=== PATIENT | female | born 1985 | race Caucasian/White ===

== ENCOUNTER 2017-05-23 06:11 | Inpatient (IN) | payer OTHER ==
[~2017-05-23] VITALS: Ht 162.6 cm; Wt 102.3 kg
[2017-05-23 06:37] VITALS: Ht 162.6 cm; Wt 102.3 kg
[2017-05-23] MEDS ORDERED: PREN-19 PO (06:43)
[2017-05-23] MEDS ORDERED: IRON18TA PO (06:43)
[2017-05-23 06:51] VITALS: BP 113/71; PULSE 78; RESP 18
[2017-05-23] MEDS ORDERED: CARBOPROST 250 MCG INJ IM PRN (07:00)
[2017-05-23] MEDS ORDERED: MISOPROSTOL 200 MCG TAB PR PRN ×2 (07:00→08:00)
[2017-05-23] MEDS ORDERED: OXYTOCIN 30 UNITS/LR 500 ML BAG IV ONE (07:00)
[2017-05-23] MEDS ORDERED: OXYTOCIN 30 UNITS/LR 500 ML IV SCH (07:00)
[2017-05-23] MEDS ORDERED: METHYLERGONOVINE 0.2 MG INJ IM PRN (07:00)
[2017-05-23] MEDS ORDERED: OXYTOCIN 30 UNITS/LR 500 ML IV PRN (07:00)
[2017-05-23] MEDS: LACTATED RINGER'S 1,000 ML IV SCH ×5 (07:00→23:59)
[2017-05-23] MEDS ORDERED: PHENYLephrine (100 MCG/ML) 5ML SYG ONE ×3 (07:49→08:33)
[2017-05-23] MEDS ORDERED: ONDANSETRON 4 MG INJ ONE (07:49)
[2017-05-23] MEDS ORDERED: morphine SULFATE/PF (10 MG/10 ML) INJ ONE (07:50)
[2017-05-23] MEDS ORDERED: OXYTOCIN 10 UNIT INJ ONE (07:50)
[2017-05-23] MEDS: CEFAZOLIN 2 GM/50 ML (PMX) 50 ML IV SCH ×3 (07:57→17:05)
--- NOTE | 2017-05-23 07:58 | HP ---
Date/Time of Note Date/Time of Note DATE: 05/23/17 TIME: 07:57 OB - History Hx of Present Free Text/Dictation HISTORY OF PRESENT ILLNESS: The patient is with IUP at 39 weeks with history of previous delivery, who desires to have repeat delivery. I discussed with the patient the risks, benefits, indications, and alternatives of procedure including but not limited to risks of infection, bleeding, damage to other organs, bowel, bladder, hernia formation, scar formation, possibility of blood transfusion, possible need for emergency hysterectomy. She was allowed to ask questions. All her questions were answered. Informed consent has been obtained. Care: Good Care Ultrasounds: Normal mid trimester US Obstetrical Complications: None Medical Complications: None Past Family/Social History * Past Medical, Surgical, Family and Obstetric Histories reviewed from chart. OB Admission Exam Vital Signs Vital Signs Vital Signs Date Time Temp Pulse Resp B/P Pulse Ox O2 Delivery O2 Flow Rate FiO2 05/23/17 06:51 98.7 78 18 113/71 Room Air Physical Exam HEENT: WNL Heart: Rhythm Normal Lungs: Clear, Equal Abdomen: WNL Extremities: Normal Reflexes: Normal Last 72 hours Lab Results CBC & BMP 05/23/17 06:45 OB Assessment/Plan Other Assessment: The patient is with IUP at 39 weeks with history of previous delivery, who desires to have repeat delivery. Plan: Section ANAT BONILLA MD May 23, 2017 07:58
[2017-05-23] MEDS ORDERED: LANOLIN 7 GM TUBE TOP PRN (08:00)
[2017-05-23] MEDS ORDERED: NA PHOSPHATE/BIPHOS 133 ML ENEMA PR PRN (08:00)
[2017-05-23] MEDS ORDERED: OXYCODONE/ACETAMINOPHEN (5/325) TAB PO PRN (08:00)
[2017-05-23] MEDS ORDERED: FENTAnyl 50 MCG/ML VIAL ONE (08:20)
[2017-05-23] MEDS: SENNA/DOCUSATE NA (8.6MG/50MG) TAB PO SCH ×2 (09:00→21:20)
--- NOTE | 2017-05-23 09:14 | OPR ---
Operative Report Planned Procedure Procedure date May 23, 2017 Procedure(s) repeat delivery Performed by see signature line Assisting provider: COLEEN COOPER MD Pre-procedure diagnosis Term IUP Desires repeat delivery Anesthesia Type: spinal Procedure Description Under satisfactory [spinal] anesthesia, the patient was prepped and draped and placed in a supine position, tilted to the left. Pfannenstiel incision was made , carried through the subcutaneous tissue. Bleeders brought under control with electrocautery. Fascia incised to the length of the incision. Rectus muscles from the fascia, divided midline. Peritoneum exposed, entered through a transverse incision. Exploration of abdomen revealed gravid uterus. Bladder flap was developed. Transverse incision was made in the lower segment of the uterus. Amniotic sac ruptured. clear amniotic fluid noted. Nasal oropharyngeal suction was performed. The baby was handed to the team for immediate attention. The placenta was delivered manually intact. Uterine cavity was cleaned with wet sponge and drainage established. Uterus closed in 2 layers using #1 Monocryl in continuous fashion. Peritoneal cavity irrigated with warm saline. Sponge, needle and instrument count reported to be correct. Abdominal peritoneum closed with 2-0 Monocryl continuously. Rectus muscle approximated with 2-0 Monocryl. Fascia closed with #1 Vicryl, and skin closed with alona. Estimated blood loss 700 mL. Post-Procedure Findings: Live Baby Vertex presentation Estimated blood loss: other (600) Specimen(s): no Grafts/Implants: no Complication(s): no Pt Condition post procedure: stable Disposition: PACU Physician Certification I, the undersigned physician, hereby certify that I have discussed the procedure described in this consent form with this patient (or the patient's legal pharmaceutical specialty representative), including: * The risk and benefits of the procedure; * Any adverse reactions that may reasonably be expected to occur; * Any alternative efficacious methods of treatment which may be medically viable ; * The potential problems that may occur during recuperation; * Potential for blood transfusion and associated risks/benefits; and * Any research or economic interest I may have regarding this treatment. I further certify that the patient/legally responsible person was encouraged to ask question and that all questions were answered. ANAT BONILLA MD May 23, 2017 09:14
[2017-05-23] MEDS ORDERED: morphine 2 MG INJ IV PRN (09:30)
[2017-05-23] MEDS ORDERED: DIPHENHYDRAMINE 50 MG INJ IV PRN (09:30)
[2017-05-23] MEDS ORDERED: NALOXONE (0.4 MG/ML) INJ IV PRN (09:30)
[2017-05-23] MEDS ORDERED: ONDANSETRON 4 MG INJ IV PRN (09:30)
[2017-05-23] MEDS: KETOROLAC 30 MG INJ IV PRN ×2 (10:56→18:47)
[2017-05-23 12:00] VITALS: BP 95/58; PULSE 74; RESP 18
[2017-05-23 16:00] VITALS: BP 88/56; PULSE 79; RESP 20
[2017-05-23 20:00] VITALS: BP 101/54; PULSE 70; RESP 18
[2017-05-24] VITALS: BP 91/58; PULSE 74; RESP 18
[2017-05-24] MEDS: KETOROLAC 30 MG INJ IV PRN ×2 (01:45→07:45)
[2017-05-24 04:00] VITALS: BP 94/58; PULSE 72; RESP 18
[2017-05-24] MEDS: OXYCODONE/ACETAMINOPHEN (5/325) TAB PO PRN ×2 (07:49→16:56)
[2017-05-24] MEDS: LACTATED RINGER'S 1,000 ML IV SCH ×2 (07:59→15:59)
[2017-05-24 08:00] VITALS: BP 102/63; PULSE 81; RESP 19
[2017-05-24] MEDS: SENNA/DOCUSATE NA (8.6MG/50MG) TAB PO SCH ×2 (09:00→22:16)
[2017-05-24] MEDS: IBUPROFEN 600 MG TAB PO SCH ×2 (12:17→18:33)
--- NOTE | 2017-05-24 15:46 | PN ---
Date/Time of Note Date/Time of Note DATE: 05/24/17 TIME: 15:44 OB Subjective Subjective Subjective Status post repeat section Postoperative day #1 Patient denies any complaint. Pain well-controlled. Breast-feeding. Denies any nausea and vomiting. Tolerates a regular diet. Breast-feeding. Has a slightly trouble with breast-feeding. OB Objective Objective Objective General appearance: Alert and oriented 4. Patient does not appear to be in any acute distress. Abdomen: Soft, appropriate tenderness in the incision. Incision, clean dry and intact. Extremities: No calf tenderness, no click no edema Breast: No evidence of engorgement, fissure or mastitis Fundus, firm Hematology - 72 Hrs Test 05/23/17 06:45 05/24/17 09:56 White Blood Count 14.310^3/ul (4.8-10.8) H 12.710^3/ul (4.8-10.8) H Red Blood Count 4.5210^6/ul (4.20-5.40) 4.0010^6/ul (4.20-5.40) L Hemoglobin 13.6g/dl (12.0-16.0) 12.1g/dl (12.0-16.0) Hematocrit 40.5% (37.0-47.0) 36.6% (37.0-47.0) L Mean Corpuscular Volume 89.6fl (82.0-101.0) 91.5fl (82.0-101.0) Mean Corpuscular Hemoglobin 30.1pg (29.0-33.0) 30.3pg (29.0-33.0) Mean Corpuscular Hemoglobin Concent 33.6g/dl (32.0-37.0) 33.1g/dl (32.0-37.0) Red Cell Distribution Width 13.2% (11.5-14.5) 13.3% (11.5-14.5) Platelet Count 54713^3/UL (140-415) 18123^3/UL (140-415) Mean Platelet Volume 11.9fl (7.4-10.4) H 11.7fl (7.4-10.4) H Neutrophils % 78.2% (39.0-77.0) H 81.0% (39.0-77.0) H Lymphocytes % 13.5% (15.0-51.0) L 11.3% (15.0-51.0) L Monocytes % 6.1% (0.0-11.0) 6.1% (0.0-11.0) Eosinophils % 1.0% (0.0-7.0) 0.6% (0.0-7.0) Basophils % 0.3% (0.0-2.0) 0.2% (0.0-2.0) Nucleated Red Blood Cells % 0.0/100WBC (0.0-0.0) 0.0/100WBC (0.0-0.0) Neutrophils # 11.210^3/ul (1.6-7.5) H 10.310^3/ul (1.6-7.5) H Lymphocytes # 1.910^3/ul (0.8-2.9) 1.410^3/ul (0.8-2.9) Monocytes # 0.910^3/ul (0.3-0.9) 0.810^3/ul (0.3-0.9) Eosinophils # 0.210^3/ul (0.0-0.5) 0.110^3/ul (0.0-0.5) Basophils # 0.110^3/ul (0.0-0.1) 0.010^3/ul (0.0-0.1) Nucleated Red Blood Cells # 0.010^3/ul (0.0-0.0) 0.010^3/ul (0.0-0.0) OB Assessment/Plan Other Assessment: S/p RCS Postoperative day #1 Doing well Routine postop care CHRISSY MONACO MD May 24, 2017 15:46
[2017-05-24 16:00] VITALS: BP 99/56; PULSE 77; RESP 18
[2017-05-24 20:00] VITALS: BP 92/54; PULSE 69; RESP 18
[2017-05-25] MEDS: IBUPROFEN 600 MG TAB PO SCH ×3 (00:36→11:40)
[2017-05-25 04:00] VITALS: BP 102/60; PULSE 68; RESP 18
--- NOTE | 2017-05-25 07:49 | DS ---
Date/Time of Note Date/Time of Note DATE: 05/25/17 TIME: 07:47 Obstetrical Discharge Record Final Diagnosis Final Diagnosis: Term delivered Other Final Diagnosis s/p repeat delivery without any complications. post op recovery was uneventful. she passed gas, tolerating regular diet ambulating well good pain control on oral pain meds Section Section: Repeat Complications Augmentation: No Induction: No Condition on Discharge Physical Assessment Voiding: Yes Bowel Movement: Yes Breast: Soft, non-tender, Filling Fundus: Firm Abdomen and Incision: soft, appropriate tender. incision is clean and intact and no sign of infection Calf Tenderness: No Patient Condition: Good ANAT BONILLA MD May 25, 2017 07:49
[2017-05-25 08:30] VITALS: BP 114/57; PULSE 79; RESP 18
[2017-05-25] MEDS: SENNA/DOCUSATE NA (8.6MG/50MG) TAB PO SCH (09:37)
[2017-05-25] MEDS: OXYCODONE/ACETAMINOPHEN (5/325) TAB PO PRN (14:01)
[2017-05-26] MEDS ORDERED: DIPHTH/TET/ACEL PERTUSS (ADULT) 0.5 ML VIAL IM* ONE (09:00)
[2017-05-26] MEDS ORDERED: MEASLES,MUMPS,RUBELLA VACCINE INJ SC* ONE (09:00)
== END 2017-05-25 14:55 | disposition home or self-care (01) | DRG 766 ==
LOC: L-D 06:11 → PP1 11:52
PROVIDERS: ADMIT Specialist; ATTEND Specialist
PROC: 10D00Z1 Extraction of Products of Conception, Low, Open Approach (ICD-10-PCS; principal; 2017-05-23 07:30)
DX: O34.211 Maternal care for low transverse scar from previous cesarean delivery (principal); Z37.0 Single live birth; Z3A.39 39 weeks gestation of pregnancy
CPT/HCPCS: 85025; 85610; 85730; 86592; 86850; 86900; 86901; 87340; 99464; J0690; J1200; J1885; J2274; J2370; J2405; J2590; J3010; J7120